=== PATIENT | male | born 1955 | race Caucasian/White ===

== ENCOUNTER 2018-04-02 22:26 | Emergency (ER) ==
--- NOTE | 2018-04-02 22:47 | ED.PDOC ---
General ED Provider: Dr. CORNELIA VIVAR Chief Complaint: Seizure Stated Complaint: Brought from [facility]. the facilty person saw patient was having seizure like activity, when EMT there he was not in post ictal never had h/o seizures. Time Seen by Physician: 22:45 Nursing and Triage Documentation Reviewed and Agree: Yes Does patient meet sepsis criteria?: No If yes, has appropriate treatment been initiated?: No System Inflammatory Response Syndrome: Not Applicable Sepsis Protocol: For patient's 13 years and over: Temp is 96.8 and below OR 101 and greater Pulse >90 BPM Resp >20/minute Acutely Altered Mental Status Are patient's symptoms suggestive of a new infection, such as: -Pneumonia -Skin, Soft Tissue -Endocarditis -UTI -Bone, Joint Infection -Implantable Device -Acute Abdominal Infection -Wound Infection -Meningitis -Blood Stream Catheter Infection -Unknown Neurological Complaint Exam - Seizure Complaint/Exam Symptoms Are: Resolved Timing: Intermittent Episodes Lasting: Seconds Failed to Regain Consciousness: No Severity: Self-limited Location: All extremities (dont know what type) Aggravating: Reports: None Alleviating: Reports: Spontaneous resolution Associated Signs and Symptoms: Denies: Anxiety, Emotional distress, Impaired speech, Bladder incontinence, Bowel incontinence, Trauma, Illness, Vomiting, Lethargy, Apnea SAH Risk Factors: Reports: None Meningitis Risk Factors: Reports: None SDH Risk Factors: Reports: None Related Surgical History: Reports: None Carotid Bruit Present: No Cephalohematoma Present: No Tongue Bitten: No Neck Pain Present: No Glascow Coma Scale (see protocol): 15 Nystagmus Present: No Gag Reflex Present: No Speech: Present: Normal Findings Aphasia: Present: None Meningeal Signs Positive: No Focal Weakness: Present: None Focal Sensory Loss: Reports: None Gait: Normal Review of Systems - Review Of Systems Constitutional: Reports: No symptoms Eyes: Reports: No symptoms Ears, Nose, Mouth, Throat: Reports: No symptoms Respiratory: Reports: No symptoms Cardiac: Reports: No symptoms GI: Reports: No symptoms : Reports: No symptoms Musculoskeletal: Reports: No symptoms Skin: Reports: No symptoms Neurological: Reports: No symptoms Endocrine: Reports: No symptoms Hematologic/Lymphatic: Reports: No symptoms All Other Systems: Reviewed and Negative Past Medical History - Past Medical History Previously Healthy: Yes Endocrine: Reports: None Cardiovascular: Reports: Hypertension Respiratory: Reports: None Hematological: Reports: None Gastrointestinal: Reports: None, GERD Genitourinary: Reports: None Neuro/Psych: Reports: Seizure Musculoskeletal: Reports: Arthritis Cancer: Reports: None - Surgical History General Surgical History: Reports: None - Family History Family History: Reports: None Physical Exam - Physical Exam Appearance: Ill-appearing (legally blind), No pain distress, Well-nourished Eyes: DELMAR, EOMI, Conjunctiva clear ENT: Ears normal (no tongue bite sign), Nose normal, Oropharynx normal Respiratory: Airway patent, Breath sounds clear, Breath sounds equal, Respirations nonlabored Cardiovascular: RRR, Pulses normal, No rub, No murmur GI/: Soft, Nontender, No masses, Bowel sounds normal, No Organomegaly Musculoskeletal: Normal strength, ROM intact, No edema, No calf tenderness Skin: Warm, Dry, Normal color Neurological: Sensation intact, Motor intact, Reflexes intact, Cranial nerves intact, Alert, Oriented Psychiatric: Affect appropriate, Mood appropriate Interpretation - Radiology Interpretation Radiology Interpretation By: Radiologist Radiology Results: Positive Exam Interpreted: CT Scan Critical Care Note - Critical Care Note Total Time (mins): 30 Course - Course Hematology/Chemistry: 04/02/18 22:54 04/02/18 22:54 Orders, Labs, Meds: Lab Review 04/02/18 04/02/18 04/02/18 22:54 22:54 22:54 WBC 8.99 RBC 4.46 L Hgb 14.7 Hct 41.5 L MCV 93.0 MCH 33.0 H MCHC 35.4 RDW Coeff of Kristie 11.9 Plt Count 148 Immature Gran % (Auto) 0.3 Neut % (Auto) 75.2 Lymph % (Auto) 15.4 Barber % (Auto) 7.5 Eos % (Auto) 1.0 Baso % (Auto) 0.6 Immature Gran # (Auto) 0.0 Neut # (Auto) 6.8 Lymph # (Auto) 1.4 Barber # (Auto) 0.7 Eos # (Auto) 0.1 Baso # (Auto) 0.1 Sodium 127 L Potassium 4.2 Chloride 91 L Carbon Dioxide 25 Anion Gap 15.2 BUN 9 Creatinine 0.74 Estimated GFR (MDRD) 107.00 BUN/Creatinine Ratio 12.16 Glucose 103 Calcium 8.7 Total Bilirubin 0.5 AST 12 L ALT 8 L Alkaline Phosphatase 69 Total Protein 6.5 Albumin 3.6 Globulin 2.9 Albumin/Globulin Ratio 1.24 Urine Color Urine Clarity Urine pH Ur Specific Elizabeth Urine Protein Urine Glucose (UA) Urine Ketones Urine Blood Urine Nitrite Urine Bilirubin Urine Urobilinogen Ur Leukocyte Esterase Valproic Acid 36.31 L 04/02/18 23:40 WBC RBC Hgb Hct MCV MCH MCHC RDW Coeff of Kristie Plt Count Immature Gran % (Auto) Neut % (Auto) Lymph % (Auto) Barber % (Auto) Eos % (Auto) Baso % (Auto) Immature Gran # (Auto) Neut # (Auto) Lymph # (Auto) Barber # (Auto) Eos # (Auto) Baso # (Auto) Sodium Potassium Chloride Carbon Dioxide Anion Gap BUN Creatinine Estimated GFR (MDRD) BUN/Creatinine Ratio Glucose Calcium Total Bilirubin AST ALT Alkaline Phosphatase Total Protein Albumin Globulin Albumin/Globulin Ratio Urine Color Yellow Urine Clarity Clear Urine pH 7.0 Ur Specific Elizabeth 1.015 Urine Protein Negative Urine Glucose (UA) Negative Urine Ketones Negative Urine Blood Negative Urine Nitrite Negative Urine Bilirubin Negative Urine Urobilinogen 0.2 Ur Leukocyte Esterase Negative Valproic Acid Orders Category Date Time Status CBC W/ AUTO DIFF Stat LAB 04/02/18 22:54 Completed COMPREHENSIVE METABOLIC PANEL Stat LAB 04/02/18 22:54 Completed URINALYSIS C & S IF INDICATED Stat LAB 04/02/18 23:40 Completed VALPORIC ACID (DEPAKENE) Stat LAB 04/02/18 22:[address] CHEST W/O CONTRAST Stat RADS 04/02/18 23:[address] HEAD W/O CONTRAST Stat RADS 04/02/18 22:44 Completed Vital Signs: Temp Pulse Resp BP Pulse Ox 04/02/18 22:56 98.3 F 73 20 141/85 H 96 Departure - Departure Time of Disposition: 23:30 Disposition: HOME SELF-CARE Discharge Problem: Seizure Instructions: Nonepileptic Seizures (DC) Condition: Stable Pt referred to PMD for follow-up: Yes IPMP verified?: No Additional Instructions: Continue taking Depakote keep monitoring for seizures needs f/u with Neuro needs cmp check in 4 days Prescriptions: Cephalexin [Keflex] 500 mg PO Q12HR #14 capsule Allergies/Adverse Reactions: Allergies No Known Allergies Allergy (Unverified 04/02/18 23:08) Home Medications: Ambulatory Orders Cephalexin [Keflex] 500 mg PO Q12HR #14 capsule 04/03/18 Disposition Discussed With: Patient
[2018-04-02 23:08] VITALS: BP 141/85; TEMP 98.3; BMI 22.9
--- NOTE | 2018-04-03 00:16 | CT ---
EXAM: CT head without contrast. HISTORY: Possible seizure. PROCEDURE: Contiguous axial CT images of the head without contrast with coronal and sagittal reforma ts. FINDINGS: There is diffuse cerebral atrophy. The ventricles and basal cisterns are normal in size an d configuration. No evidence of mass or midline shift. No intracranial hemorrhage or evidence of la rge vessel infarct. No extra-axial fluid collection. There are chronic small vessel ischemic change s in the white matter. There is partial opacification of the bilateral mastoid air cells. The parana jose luis sinuses are well-aerated and normal in appearance. Impression: No intracranial hemorrhage or evidence of large vessel infarct. Chronic small vessel ischemic changes. Diffuse cerebral atrophy. Bilateral mastoiditis.
--- NOTE | 2018-04-03 00:25 | CT ---
EXAM: CT of the chest without contrast. HISTORY: Cough. PROCEDURE: Contiguous axial CT images of the chest without contrast with coronal and sagittal reform ats. FINDINGS: The heart is within normal limits in size. The thoracic aorta is within normal limits in d iameter. There are atherosclerotic calcifications in the thoracic aorta. There are calcified medias tinal and hilar lymph nodes. There are emphysematous changes throughout both lungs. There is minimal left basilar consolidation. There is minimal bibasilar dependent atelectasis. There is a calcified g ranuloma in the left lower lobe. There are multilevel compression fractures in the thoracic spine wit h up to 50% loss of vertebral body height, age indeterminate. No retropulsion. There is kyphosis of the thoracic spine. The adrenal glands and visualized portion of the liver are normal in appearance. Impression: Minimal left basilar consolidation consistent with pneumonia. Minimal bibasilar dependent atelectasis. Chronic obstructive pulmonary disease. Multilevel compression fractures in the thoracic spine as described.
== END 2018-04-03 02:00 | disposition home or self-care (01) ==
LOC: ED 22:26
DX: R56.9 Unspecified convulsions (principal)
CPT/HCPCS: 36415; 80053; 80164; 81001; 85025; 99283

== ENCOUNTER 2018-11-11 14:24 | Emergency (ER) ==
[2018-11-11 14:31] VITALS: BP 125/76; TEMP 98.3
--- NOTE | 2018-11-11 15:07 | DI ---
EXAM: CHEST FRONTAL VIEW HISTORY: Cough. COMPARISON: 10/30/2015 FINDINGS: Heart size and mediastinum remain within normal limits. There is diffuse, chronic appea ring interstitial accentuation. No acute infiltrates are seen. No vascular congestion. There is no consolidation, visible pleural fluid or pneumothorax. Bones reveal no acute fracture. IMPRESSION: No acute cardiopulmonary process.
--- NOTE | 2018-11-11 15:15 | CT ---
EXAM: CT of the head without contrast History: Seizure. Dizziness Comparison: Head CT 08/05/2018, brain MRI 10/02/2018 Technique: Multiplanar CT images through the head were obtained without the administration of IV cont rast Findings: The visualized paranasal sinuses are clear in general. No change in the chronic bilateral mastoid effusions. No acute calvarial abnormalities. Intracranially there is stable atrophy. No midline shift and no hydrocephalus. No acute intracrania l hemorrhage or abnormal extraaxial fluid collections. No change in the periventricular and subcorti cassandra white matter hypodensities. Impression: 1. No acute intracranial process. 2. Stable atrophy and chronic small vessel ischemic disease. 3. No change in the chronic bilateral mastoid effusions
--- NOTE | 2018-11-11 15:20 | CT ---
EXAM: CT cervical spine. HISTORY: Seizure, concern for neck injury. TECHNIQUE: CT cervical spine without contrast. Detailed axial sections. Coronal and sagittal re-fo rmations. COMPARISON: None FINDINGS: No fracture or loss of vertebral body height. Diffuse degenerative disc and facet disease is present . There is anterior spondylolisthesis of C3 on C4 estimated at 2.2 mm and slightly less posterior sp ondylolisthesis of C5 on C6. This listhesis likely related to facet arthropathy. Facet joints are c overed. Lateral masses of C1 and C2 are normally aligned and the odontoid process is intact. No ac nightmute fracture is seen. Degenerative changes lead to multilevel mild central canal stenosis. There is at least mild bilateral neural foraminal narrowing at C4/C5, C5/C6 and C6/C7. There is no paraspina l fluid collection or hematoma. Incidental findings include bilateral mastoid process effusions and evidence of pulmonary emphysema. There appears to be at least mild acute infiltrate in the left uppe r lung. IMPRESSION: 1. Degenerative changes of the cervical spine with no fracture identified. 2. Pulmonary emphysema with probable left upper lobe pneumonia. 3. Bilateral mastoid process effusion. 4. Atherosclerosis.
--- NOTE | 2018-11-11 15:57 | ED.PDOC ---
General ED Provider: Dr. LES DE PAZ Chief Complaint: Seizure Stated Complaint: break through seizure at a shelter he arrived AOX3 with no neuro sensory deficits Time Seen by Physician: 14:30 Mode of Arrival: Stretcher Information Source: Patient, EMT Exam Limitations: No limitations Nursing and Triage Documentation Reviewed and Agree: Yes Does patient meet sepsis criteria?: No System Inflammatory Response Syndrome: Not Applicable (there was a question history of head injury due to seizure ) Sepsis Protocol: For patient's 13 years and over: Temp is 96.8 and below OR 101 and greater Pulse >90 BPM Resp >20/minute Acutely Altered Mental Status Are patient's symptoms suggestive of a new infection, such as: -Pneumonia -Skin, Soft Tissue -Endocarditis -UTI -Bone, Joint Infection -Implantable Device -Acute Abdominal Infection -Wound Infection -Meningitis -Blood Stream Catheter Infection -Unknown Review of Systems - Review Of Systems Constitutional: Reports: No symptoms Eyes: Reports: No symptoms Ears, Nose, Mouth, Throat: Reports: No symptoms Respiratory: Reports: No symptoms Cardiac: Reports: No symptoms GI: Reports: No symptoms : Reports: No symptoms Musculoskeletal: Reports: No symptoms Skin: Reports: Bruising (left forhead see photos ) Neurological: Reports: No symptoms Endocrine: Reports: No symptoms Hematologic/Lymphatic: Reports: No symptoms All Other Systems: Reviewed and Negative Past Medical History - Past Medical History Previously Healthy: Yes Endocrine: Reports: None Cardiovascular: Reports: Hypertension Respiratory: Reports: None Hematological: Reports: None Gastrointestinal: Reports: None, GERD Genitourinary: Reports: None Neuro/Psych: Reports: Seizure Musculoskeletal: Reports: Arthritis Cancer: Reports: None - Surgical History General Surgical History: Reports: None - Family History Family History: Reports: None - Social History Smoking Status: Current every day smoker, Heavy tobacco smoker Hx Substance Use: No Alcohol Screening: None Physical Exam - Physical Exam Appearance: Well-appearing, No pain distress, Well-nourished Eyes: DELMAR, EOMI, Conjunctiva clear ENT: Ears normal, Nose normal, Oropharynx normal Respiratory: Airway patent, Breath sounds clear, Breath sounds equal, Respirations nonlabored Cardiovascular: RRR, Pulses normal, No rub, No murmur GI/: Soft, Nontender, No masses, Bowel sounds normal, No Organomegaly Musculoskeletal: Normal strength, ROM intact, No edema, No calf tenderness Skin: Warm, Dry (abrasion left forhead see photo) Neurological: Sensation intact, Motor intact, Reflexes intact, Cranial nerves intact, Alert, Oriented Psychiatric: Affect appropriate, Mood appropriate - NIH Stroke Scale 1a. Level of Consciousness: 0=Alert and keenly responsive 1b. Level of Consciousness Questions: 0=Answers correctly to two questions 1c. Level of Consciousness Commands: 0=Performs two tasks correctly 2. Best Gaze: 0=Normal 3. Visual: 0=No visual loss 4. Facial Palsy: 0=Normal 5a. Motor Left Arm: 0=No drift,arm holds 90 degrees for 10 sec., leg 30 degrees for 5 sec. 5b. Motor Right Arm: 0=No drift,arm holds 90 degrees for 10 sec., leg 30 degrees for 5 sec. 6a. Motor Left Le=No drift,arm holds 90 degrees for 10 sec., leg 30 degrees for 5 sec. 6b. Motor Right Le=No drift,arm holds 90 degrees for 10 sec., leg 30 degrees for 5 sec. 7. Limb Ataxia: 0=Absent 8. Sensory: 0=Normal 9. Best Language: 0=No aphasia 10. Dysarthria: 0=Normal 11. Extincion and Inattention: 0=Normal (no evidence of truncal ataxia) Stroke Scale Total: 0 Interpretation - Radiology Interpretation Radiology Interpretation By: Radiologist Radiology Results: No acute changes Exam Interpreted: CT Scan Re-Evaluation - Re-Evaluation Time of Re-Evaluation: 15:00 Status: Improved Vital Signs Stable: Yes Pain Level: 0 Appearance: NAD Lungs: Clear Skin: Warm and Dry Neuro: Alert and Oriented X3 CV: RRR - Re-Evaluation Time of Re-Evaluation: 15:58 Status: Improved Vital Signs Stable: Yes Pain Level: 0 Appearance: NAD Skin: Warm and Dry Neuro: Alert and Oriented X3 CV: RRR (no brain stem signs) Critical Care Note - Critical Care Note Total Time (mins): 0 Course - Course Hematology/Chemistry: 11/11/18 15:24 11/11/18 15:24 Orders, Labs, Meds: Lab Review 11/11/18 11/11/18 15:24 15:24 WBC 9.75 RBC 4.01 L Hgb 13.0 L Hct 38.8 L MCV 96.8 H MCH 32.4 H MCHC 33.5 RDW Coeff of Kristie 12.3 Plt Count 161 Immature Gran % (Auto) 0.3 Neut % (Auto) 82.7 Lymph % (Auto) 10.7 Meade % (Auto) 5.8 Eos % (Auto) 0.1 Baso % (Auto) 0.4 Immature Gran # (Auto) 0.0 Neut # (Auto) 8.1 H Lymph # (Auto) 1.0 Meade # (Auto) 0.6 Eos # (Auto) 0.0 Baso # (Auto) 0.0 Sodium 131.6 L Potassium 4.01 Chloride 91.5 L Carbon Dioxide 32.7 H Anion Gap 11.41 BUN 17.6 Creatinine 0.72 Estimated GFR (MDRD) 111.00 BUN/Creatinine Ratio 24.44 Glucose 197.9 H Calcium 8.48 Total Bilirubin 0.33 AST 16.5 L ALT 12.0 Alkaline Phosphatase 62.7 Total Creatine Kinase 36.4 L Troponin I < 0.012 Total Protein 6.14 L Albumin 3.64 Globulin 2.50 Albumin/Globulin Ratio 1.45 Orders Category Date Time Status EKG-(ED ONLY) Stat CARDIO 11/11/18 14:38 Completed CBC W/ AUTO DIFF Stat LAB 11/11/18 15:24 Completed COMPREHENSIVE METABOLIC PANEL Stat LAB 11/11/18 15:24 Completed CREATINE KINASE Stat LAB 11/11/18 15:24 Completed PARTIAL THROMBOPLASTIN TIME Stat LAB 11/11/18 15:24 Received PT WITH INR Stat LAB 11/11/18 15:24 Received TROPONIN I Stat LAB 11/11/18 15:24 Completed CHEST, 1V AP ONLY Stat RADS 11/11/18 14:[address] CERVICAL SPINE W/O CONTRAST Stat RADS 11/11/18 14:[address] HEAD W/O CONTRAST Stat RADS 11/11/18 14:38 Completed Vital Signs: Temp Pulse Resp BP Pulse Ox 11/11/18 14:25 98.3 F 92 H 16 125/76 95 Departure - Departure Time of Disposition: 15:59 Disposition: HOME SELF-CARE Discharge Problem: Seizure Instructions: Recurrent Seizures in Adults (ED) Condition: Good Pt referred to PMD for follow-up: Yes IPMP verified?: No Additional Instructions: Please call your Family Physician as soon as possible to schedule a follow-up appointment. Allergies/Adverse Reactions: Allergies No Known Allergies Allergy (Verified 11/11/18 14:35) Home Medications: Ambulatory Orders Aspirin [Aspirin EC] 81 mg PO DAILY 07/13/18 Divalproex Sodium [Divalproex Sodium ER] 500 mg PO BEDTIME 04/03/18 Levothyroxine Sodium 50 mcg PO DAILY 04/03/18 Meloxicam 7.5 mg PO DAILY 04/03/18 Mirtazapine 30 mg PO BEDTIME 04/03/18 Montelukast Sodium 10 mg PO DAILY 04/03/18 Ranitidine HCl [Acid Control] 150 mg PO BID 04/03/18 Risperidone [Risperdal] 3 mg PO BID 04/03/18 Vit A/Vit C/Vit E/Zinc/Copper [Preservision Areds Softgel] 1 cap PO BID
== END 2018-11-11 17:25 | disposition home or self-care (01) ==
LOC: ED 14:24
DX: R56.9 Unspecified convulsions (principal); S00.83XA Contusion of other part of head, initial encounter; Z72.0 Tobacco use
CPT/HCPCS: 36415; 80053; 82550; 84484; 85025; 85610; 85730; 93005; 93010; 99283